=== PATIENT | male | born 1940 | race Caucasian/White ===

== ENCOUNTER → 2016-10-28 | Outpatient (CLI) | payer MEDICARE ==
[~2016-10-28] MED LIST: ALLOPURINOL300 M1 PO; ALLOPURINOL300 MG PO; ASPIRIN 81MG TA81 MG PO; ATORVASTATIN CA20 MG PO; AVODART0.5 MG PO; CIPRO 500MG TA500 MG PO; FLOMAX 0.4MG C0.4 MG PO; GLUCOSAMINE500 MG PO; LEVAQUIN500 MG PO; LISINOPRIL2.5 MG PO; LOPRESSOR 25MG.25 MG PO; NAPROSYN 500MG500 MG PO; PERCOCET 325 MG1 TA3 PO; PROSCAR 5MG TABL5 MG PO; PROTONIX20 MG PO; ROBAXIN-750750 MG PO; TYLENOL W/CODEI1 TA2 PO; [UNRECOGNIZED DRUG - REMARK]
--- NOTE | 2016-10-28 16:37 | RADIOLOGY REPORT PS360 ---
CHEST(2 VIEWS-NOT PORTABLE) HISTORY: CHEST WALL PAIN ORDERING PHYSICIAN: Juan Oliver MD PATIENT AGE: 76 years COMPARISON: 05/31/2013 FINDINGS: Prior CABG. Normal heart size. No evidence of CHF. Lungs are clear. No acute bony anomalies. IMPRESSION: 1. No change with no acute finding. 2. Prior CABG.
--- NOTE | 2016-10-28 16:38 | RADIOLOGY REPORT PS360 ---
[id number] VIEW HISTORY: CHEST WALL PAIN ORDERING PHYSICIAN: Juan Oliver MD PATIENT AGE: 76 years COMPARISON: None FINDINGS: No fracture. No lytic or blastic change. Prior CABG. IMPRESSION: Negative right ribs.
== END ==
LOC: RAD 14:55
DX: R07.89 Other chest pain (principal)